=== PATIENT | female | born 1980 | race Two or more races ===

== ENCOUNTER 2018-06-26 21:17 | Inpatient (IN) | payer OTHER ==
[~2018-06-26] VITALS: Ht 167.6 cm; Wt 99.8 kg
[2018-06-26] MEDS ORDERED: LACTATED RINGERS 1,000 ML IV SCH (22:17)
[2018-06-26] MEDS ORDERED: DEXT 5%/LR + PITOCIN 20UNITS/L 1,000 ML IV SCH (22:17)
[2018-06-26] MEDS ORDERED: AMPICILLIN 2,000 MG in SODIUM CHLORIDE 0.9% 100 ML IV NR (22:30)
[2018-06-26] MEDS ORDERED: AZITHROMYCIN 500 MG in DEXT 5% WATER 250 ML IV NR (22:30)
[2018-06-26] MEDS ORDERED: BUTORPHANOL TARTRATE 2 MG/ML VIAL IV PRN (22:30)
[2018-06-26] MEDS ORDERED: LIDOCAINE HCL 1% 20ML VIAL (Pyxis) INJ INFIL NR (22:30)
[2018-06-26] MEDS ORDERED: BETAMETHASONE ACET/BETAMET 30 MG/5 ML VIAL IM SCH (22:30)
[2018-06-26 23:08] LABS: CLARITY URINE CLEAR (CLEAR); COLOR URINE YELLOW (YELLOW); KETONES URINE NEGATIVE (NEGATIVE); LEUKOCYTE ESTERASE URINE NEGATIVE (NEGATIVE); NITRITE URINE NEGATIVE (NEGATIVE); OCCULT BLOOD URINE 1+ (NEGATIVE); PROTEIN URINE NEGATIVE (NEGATIVE); SPECIFIC GRAVITY URINE 1.015 (1.005-1.030); UROBILINOGEN URINE 0.2 E.U./dL (0.2-1.0)
[2018-06-26 23:14] LABS: BASOPHILS % 0.3 % (0.0-2.0); EOSINOPHILS % 0.7 % (0.0-5.0); HEMATOCRIT. 32.9 % (36.0-48.0); HEMOGLOBIN. 11.1 g/dL (12.0-16.0); LYMPHOCYTES % 29.2 % (20.0-50.0); MEAN CORPUSCULAR HEMOGLOBIN 30.7 pg (28.0-32.0); MEAN CORPUSCULAR VOLUME 91.3 fL (81.0-99.0); MEAN PLATELET VOLUME 7.6 fl (7.4-10.4); MONOCYTES % 7.1 % (2.0-8.0); NEUTROPHILS % 62.7 % (40.0-76.0); PLATELET 205 x1000/uL (130-400); RED CELL DISTRIBUTION WIDTH 13.1 % (11.6-14.6)
[2018-06-26 23:17] LABS: *BARBITURATES SCREEN URINE NEGATIVE (NEGATIVE); *BENZODIAZEPINES SCREEN URINE NEGATIVE (NEGATIVE); *COCAINE SCREEN URINE NEGATIVE (NEGATIVE)
[2018-06-26 23:18] LABS: *AMPHETAMINES SCREEN URINE NEGATIVE (NEGATIVE); CANNABINOID URINE SCREEN NEGATIVE (NEGATIVE); METHADONE URINE SCREEN NEGATIVE (NEGATIVE); OPIATES URINE SCREEN NEGATIVE (NEGATIVE); PHENCYCLIDINE URINE SCREEN NEGATIVE (NEGATIVE)
[2018-06-26 23:24] LABS: INR 1.2; PARTIAL THROMBOPLASTIN TIME 29.9 sec (23.4-31.0); PROTHROMBIN TIME 11.8 sec (9.1-11.1)
[2018-06-26 23:53] LABS: HEPATITIS B SURFACE ANTIGEN NEGATIVE
[2018-06-27] MEDS: AMPICILLIN 1,000 MG in SODIUM CHLORIDE 0.9% 50 ML IV SCH ×4 (08:30→17:00)
[2018-06-27] MEDS: MAGNESIUM 20 G PREMIX (L & D) 500 ML IV SCH ×2 (09:30→17:42)
[2018-06-27 16:20] LABS: CHLORIDE 103 mEq/L (98-107)
[2018-06-27] MEDS: METFORMIN HCL 500MG TABLET PO SCH (17:08)
[2018-06-28] MEDS: MAGNESIUM 20 G PREMIX (L & D) 500 ML IV SCH (05:17)
[2018-06-28] MEDS: BLOOD SUGAR DIAGNOSTIC STRIP TEST SCH ×2 (06:30→22:10)
[2018-06-28] MEDS: AMPICILLIN 1,000 MG in SODIUM CHLORIDE 0.9% 50 ML IV SCH ×3 (08:00→19:59)
[2018-06-28] MEDS ORDERED: INSULIN REGULAR (HUMULIN R) 300UNITS/3ML SUBCUT SCH ×2 (09:15→13:15)
[2018-06-28] MEDS: METFORMIN HCL 500MG TABLET PO SCH (10:00)
[2018-06-28] MEDS ORDERED: LABETALOL HCL 200MG TABLET PO SCH (11:55)
[2018-06-28] MEDS: NIFEDIPINE 10MG CAPSULE PO SCH (12:50)
[2018-06-28] MEDS ORDERED: DEXTROSE 50% WATER 50ML SYRINGE IV PRN (13:15)
[2018-06-28] MEDS: MAGNESIUM OXIDE 400MG TABLET PO SCH (13:31)
[2018-06-28] MEDS: INSULIN LISPRO 100 UNITS/ML SUBCUT SCH (18:26)
[2018-06-28] MEDS ORDERED: LACTATED RINGERS 1,000 ML IV SCH (22:45)
[2018-06-29] MEDS: MAGNESIUM OXIDE 400MG TABLET PO SCH ×3 (00:38→17:59)
[2018-06-29] MEDS: AZITHROMYCIN 500 MG TABLET PO SCH ×2 (02:10→21:27)
[2018-06-29] MEDS: AMPICILLIN 1,000 MG in SODIUM CHLORIDE 0.9% 50 ML IV SCH ×5 (02:50→23:57)
[2018-06-29] MEDS: NIFEDIPINE 10MG CAPSULE PO SCH ×2 (09:53→17:58)
[2018-06-29] MEDS: METFORMIN HCL 500MG TABLET PO SCH (09:53)
[2018-06-29] MEDS: INSULIN LISPRO 100 UNITS/ML SUBCUT SCH ×3 (10:55→22:09)
[2018-06-29] MEDS ORDERED: LABETALOL HCL 100MG TABLET PO SCH (11:30)
[2018-06-29] MEDS: BLOOD SUGAR DIAGNOSTIC STRIP TEST SCH (21:30)
[2018-06-30] MEDS: NIFEDIPINE 10MG CAPSULE PO SCH ×3 (04:12→18:35)
[2018-06-30] MEDS: AMPICILLIN 1,000 MG in SODIUM CHLORIDE 0.9% 50 ML IV SCH ×2 (06:06→12:10)
[2018-06-30] MEDS: METFORMIN HCL 500MG TABLET PO SCH (09:09)
[2018-06-30] MEDS: MAGNESIUM OXIDE 400MG TABLET PO SCH ×2 (09:09→18:35)
[2018-06-30] MEDS: AMOXICILLIN 250MG CAPSULE PO SCH (22:21)
[2018-06-30] MEDS: AZITHROMYCIN 500 MG TABLET PO SCH (22:21)
[2018-06-30] MEDS ORDERED: ACETAMINOPHEN 500MG TABLET PO NR (22:45)
[2018-07-01] MEDS: NIFEDIPINE 10MG CAPSULE PO SCH ×3 (02:11→17:21)
[2018-07-01] MEDS: METFORMIN HCL 500MG TABLET PO SCH (09:07)
[2018-07-01] MEDS: MAGNESIUM OXIDE 400MG TABLET PO SCH ×2 (09:07→17:22)
[2018-07-01] MEDS: AMOXICILLIN 250MG CAPSULE PO SCH ×2 (09:07→17:22)
[2018-07-01] MEDS: ACETAMINOPHEN 500MG TABLET PO PRN (22:03)
[2018-07-01] MEDS: AZITHROMYCIN 500 MG TABLET PO SCH (22:34)
[2018-07-02] MEDS: AMOXICILLIN 250MG CAPSULE PO SCH ×3 (02:14→18:15)
[2018-07-02] MEDS: NIFEDIPINE 10MG CAPSULE PO SCH ×3 (02:16→18:14)
[2018-07-02] MEDS: MAGNESIUM OXIDE 400MG TABLET PO SCH ×2 (09:54→18:14)
[2018-07-02] MEDS: METFORMIN HCL 500MG TABLET PO SCH (09:54)
[2018-07-02] MEDS: BLOOD SUGAR DIAGNOSTIC STRIP TEST SCH (10:50)
[2018-07-02] MEDS: ACETAMINOPHEN 500MG TABLET PO PRN (21:29)
[2018-07-02] MEDS: AZITHROMYCIN 500 MG TABLET PO SCH (21:31)
[2018-07-03] MEDS: NIFEDIPINE 10MG CAPSULE PO SCH ×3 (02:13→17:38)
[2018-07-03] MEDS: AMOXICILLIN 250MG CAPSULE PO SCH ×3 (02:14→17:33)
[2018-07-03] MEDS: MAGNESIUM OXIDE 400MG TABLET PO SCH ×2 (09:21→17:33)
[2018-07-03] MEDS: METFORMIN HCL 500MG TABLET PO SCH (09:21)
[2018-07-03] MEDS: INSULIN LISPRO 100 UNITS/ML SUBCUT SCH (10:30)
[2018-07-03 11:03] LABS: BASOPHILS % 0.4 % (0.0-2.0); EOSINOPHILS % 0.9 % (0.0-5.0); HEMATOCRIT. 32.3 % (36.0-48.0); LYMPHOCYTES % 18.7 % (20.0-50.0); MEAN CORPUSCULAR VOLUME 91.5 fL (81.0-99.0); MEAN PLATELET VOLUME 7.7 fl (7.4-10.4); MONOCYTES % 7.8 % (2.0-8.0); NEUTROPHILS % 72.2 % (40.0-76.0); PLATELET 188 x1000/uL (130-400); RED BLOOD CELL COUNT 3.53 mill/uL (4.2-5.4); RED CELL DISTRIBUTION WIDTH 13.7 % (11.6-14.6)
[2018-07-03] MEDS: ACETAMINOPHEN 500MG TABLET PO PRN (20:27)
[2018-07-03] MEDS: AZITHROMYCIN 500 MG TABLET PO SCH (21:55)
[2018-07-04] MEDS: NIFEDIPINE 10MG CAPSULE PO SCH ×3 (07:16→22:27)
[2018-07-04] MEDS: METFORMIN HCL 500MG TABLET PO SCH (08:42)
[2018-07-04] MEDS: MAGNESIUM OXIDE 400MG TABLET PO SCH ×2 (08:42→16:56)
[2018-07-04] MEDS: ACETAMINOPHEN 500MG TABLET PO PRN (22:23)
[2018-07-05] MEDS: NIFEDIPINE 10MG CAPSULE PO SCH ×3 (06:33→20:00)
[2018-07-05] MEDS: MAGNESIUM OXIDE 400MG TABLET PO SCH ×2 (09:22→20:55)
[2018-07-05] MEDS: METFORMIN HCL 500MG TABLET PO SCH (09:22)
[2018-07-05] MEDS: PRENATAL VIT/FE FUMARATE/FA TABLET PO SCH (10:28)
[2018-07-05] MEDS: ACETAMINOPHEN 500MG TABLET PO PRN (20:51)
[2018-07-06] MEDS: NIFEDIPINE 10MG CAPSULE PO SCH ×3 (04:12→20:59)
[2018-07-06] MEDS: METFORMIN HCL 500MG TABLET PO SCH (09:11)
[2018-07-06] MEDS: PRENATAL VIT/FE FUMARATE/FA TABLET PO SCH (09:11)
[2018-07-06] MEDS: MAGNESIUM OXIDE 400MG TABLET PO SCH ×2 (09:11→20:59)
[2018-07-06 14:31] LABS: BASOPHILS % 0.3 % (0.0-2.0); HEMOGLOBIN. 11.8 g/dL (12.0-16.0); LYMPHOCYTES % 23.1 % (20.0-50.0); MEAN CORPUSCULAR HEMOGLOBIN 31.2 pg (28.0-32.0); MEAN CORPUSCULAR VOLUME 92.3 fL (81.0-99.0); MEAN PLATELET VOLUME 8.1 fl (7.4-10.4); MONOCYTES % 9.4 % (2.0-8.0); NEUTROPHILS % 66.2 % (40.0-76.0); PLATELET 225 x1000/uL (130-400); RED CELL DISTRIBUTION WIDTH 13.2 % (11.6-14.6)
[2018-07-07] MEDS: NIFEDIPINE 10MG CAPSULE PO SCH ×3 (05:23→20:03)
[2018-07-07] MEDS: MAGNESIUM OXIDE 400MG TABLET PO SCH ×2 (09:00→17:25)
[2018-07-07] MEDS: PRENATAL VIT/FE FUMARATE/FA TABLET PO SCH (09:00)
[2018-07-07] MEDS: METFORMIN HCL 500MG TABLET PO SCH (09:01)
[2018-07-07] MEDS: INSULIN LISPRO 100 UNITS/ML SUBCUT SCH (11:01)
[2018-07-07] MEDS: BLOOD SUGAR DIAGNOSTIC STRIP TEST SCH (20:37)
[2018-07-08] MEDS: NIFEDIPINE 10MG CAPSULE PO SCH ×3 (04:05→20:31)
[2018-07-08] MEDS: METFORMIN HCL 500MG TABLET PO SCH (09:44)
[2018-07-08] MEDS: MAGNESIUM OXIDE 400MG TABLET PO SCH ×2 (09:44→17:16)
[2018-07-08] MEDS: PRENATAL VIT/FE FUMARATE/FA TABLET PO SCH (09:45)
[2018-07-08] MEDS: ACETAMINOPHEN 500MG TABLET PO PRN (14:27)
[2018-07-08] MEDS: BLOOD SUGAR DIAGNOSTIC STRIP TEST SCH (20:35)
[2018-07-09] MEDS: NIFEDIPINE 10MG CAPSULE PO SCH ×3 (04:31→22:07)
[2018-07-09] MEDS: MAGNESIUM OXIDE 400MG TABLET PO SCH (09:29)
[2018-07-09] MEDS: PRENATAL VIT/FE FUMARATE/FA TABLET PO SCH (09:29)
[2018-07-09] MEDS: METFORMIN HCL 500MG TABLET PO SCH (09:30)
[2018-07-09] MEDS: INSULIN LISPRO 100 UNITS/ML SUBCUT SCH (16:32)
[2018-07-09] MEDS: ACETAMINOPHEN 500MG TABLET PO PRN (22:04)
[2018-07-10] MEDS ORDERED: MAGNESIUM OXIDE 400MG TABLET PO SCH (09:00)
[2018-07-10] MEDS: PRENATAL VIT/FE FUMARATE/FA TABLET PO SCH (09:09)
[2018-07-10] MEDS: METFORMIN HCL 500MG TABLET PO SCH (09:09)
[2018-07-10] MEDS: MAGNESIUM OXIDE 400MG TABLET PO SCH ×2 (09:10→19:01)
[2018-07-10] MEDS: NIFEDIPINE 10MG CAPSULE PO SCH ×2 (14:35→22:25)
[2018-07-10] MEDS ORDERED: LACTATED RINGERS 1,000 ML IV SCH (17:51)
[2018-07-10 20:01] LABS: BASOPHILS % 0.6 % (0.0-2.0); EOSINOPHILS % 1.9 % (0.0-5.0); HEMATOCRIT. 34.8 % (36.0-48.0); HEMOGLOBIN. 11.5 g/dL (12.0-16.0); LYMPHOCYTES % 24.9 % (20.0-50.0); MEAN CORPUSCULAR HEMOGLOBIN 30.5 pg (28.0-32.0); MEAN CORPUSCULAR VOLUME 92.2 fL (81.0-99.0); MONOCYTES % 9.4 % (2.0-8.0); NEUTROPHILS % 63.2 % (40.0-76.0); PLATELET 288 x1000/uL (130-400); RED BLOOD CELL COUNT 3.78 mill/uL (4.2-5.4); RED CELL DISTRIBUTION WIDTH 13.1 % (11.6-14.6)
[2018-07-10] MEDS: ACETAMINOPHEN 500MG TABLET PO PRN (22:32)
[2018-07-11] MEDS: NIFEDIPINE 10MG CAPSULE PO SCH ×3 (06:22→22:00)
[2018-07-11] MEDS: PRENATAL VIT/FE FUMARATE/FA TABLET PO SCH (09:47)
[2018-07-11] MEDS: METFORMIN HCL 500MG TABLET PO SCH (09:47)
[2018-07-11] MEDS: MAGNESIUM OXIDE 400MG TABLET PO SCH (10:08)
[2018-07-12] MEDS: NIFEDIPINE 10MG CAPSULE PO SCH (06:12)
[2018-07-12] MEDS: METFORMIN HCL 500MG TABLET PO SCH (08:25)
[2018-07-12] MEDS: MAGNESIUM OXIDE 400MG TABLET PO SCH (08:25)
[2018-07-12] MEDS: PRENATAL VIT/FE FUMARATE/FA TABLET PO SCH (08:25)
[2018-07-12] MEDS: ACETAMINOPHEN 500MG TABLET PO PRN (09:58)
[2018-07-13] MEDS: NIFEDIPINE 10MG CAPSULE PO SCH ×3 (09:00→21:48)
[2018-07-13] MEDS: PRENATAL VIT/FE FUMARATE/FA TABLET PO SCH (09:20)
[2018-07-13] MEDS: METFORMIN HCL 500MG TABLET PO SCH (09:20)
[2018-07-13] MEDS: MAGNESIUM OXIDE 400MG TABLET PO SCH (09:22)
[2018-07-14] MEDS: PRENATAL VIT/FE FUMARATE/FA TABLET PO SCH (09:00)
[2018-07-14] MEDS: METFORMIN HCL 500MG TABLET PO SCH (09:29)
[2018-07-14] MEDS: MAGNESIUM OXIDE 400MG TABLET PO SCH (09:30)
[2018-07-14] MEDS: INSULIN LISPRO 100 UNITS/ML SUBCUT SCH ×2 (11:29→16:48)
[2018-07-14] MEDS: NIFEDIPINE 10MG CAPSULE PO SCH (21:23)
[2018-07-14] MEDS: ACETAMINOPHEN 500MG TABLET PO PRN (21:29)
[2018-07-15] MEDS: NIFEDIPINE 10MG CAPSULE PO SCH ×2 (08:58→21:00)
[2018-07-15] MEDS: PRENATAL VIT/FE FUMARATE/FA TABLET PO SCH (08:59)
[2018-07-15] MEDS: MAGNESIUM OXIDE 400MG TABLET PO SCH (09:00)
[2018-07-15] MEDS: METFORMIN HCL 500MG TABLET PO SCH (09:00)
[2018-07-15] MEDS: ACETAMINOPHEN 500MG TABLET PO PRN (20:58)
[2018-07-15] MEDS: BLOOD SUGAR DIAGNOSTIC STRIP TEST SCH (21:55)
[2018-07-16 07:46] LABS: BASOPHILS % 0.3 % (0.0-2.0); EOSINOPHILS % 2.6 % (0.0-5.0); HEMATOCRIT. 33.1 % (36.0-48.0); LYMPHOCYTES % 22.7 % (20.0-50.0); MEAN CORPUSCULAR HEMOGLOBIN 30.3 pg (28.0-32.0); MEAN PLATELET VOLUME 8.5 fl (7.4-10.4); MONOCYTES % 7.1 % (2.0-8.0); NEUTROPHILS % 67.3 % (40.0-76.0); PLATELET 258 x1000/uL (130-400); RED BLOOD CELL COUNT 3.64 mill/uL (4.2-5.4); RED CELL DISTRIBUTION WIDTH 13.3 % (11.6-14.6)
[2018-07-16] MEDS: PRENATAL VIT/FE FUMARATE/FA TABLET PO SCH (08:42)
[2018-07-16] MEDS: NIFEDIPINE 10MG CAPSULE PO SCH ×2 (08:42→21:03)
[2018-07-16] MEDS: MAGNESIUM OXIDE 400MG TABLET PO SCH (08:43)
[2018-07-16] MEDS: METFORMIN HCL 500MG TABLET PO SCH (08:43)
[2018-07-16] MEDS: INSULIN LISPRO 100 UNITS/ML SUBCUT SCH (11:24)
[2018-07-16] MEDS: ACETAMINOPHEN 500MG TABLET PO PRN (21:04)
[2018-07-17] MEDS ORDERED: MISOPROSTOL 100MCG TABLET PO SCH (03:00)
[2018-07-17] MEDS: METFORMIN HCL 500MG TABLET PO SCH (08:49)
[2018-07-17] MEDS: PRENATAL VIT/FE FUMARATE/FA TABLET PO SCH (08:49)
[2018-07-17] MEDS: NIFEDIPINE 10MG CAPSULE PO SCH (08:50)
[2018-07-17] MEDS: MAGNESIUM OXIDE 400MG TABLET PO SCH (09:00)
[2018-07-17] MEDS ORDERED: OXYTOCIN 20 UNITS in LACTATED RINGERS 1,000 ML IV SCH ×2 (09:00→17:30)
[2018-07-17] MEDS ORDERED: LACTATED RINGERS 1,000 ML IV SCH (09:00)
[2018-07-17] MEDS: MISOPROSTOL 100MCG TABLET PO SCH ×2 (12:55→17:05)
[2018-07-17] MEDS ORDERED: TERBUTALINE SULFATE 1MG/ML VIAL SUBCUT NR (18:30)
[2018-07-17] MEDS ORDERED: TERBUTALINE SULFATE 1MG/ML VIAL ONE (18:35)
[2018-07-17] MEDS ORDERED: CITRIC ACID/SODIUM CITRATE SOLN 30ML UDC PO NR (18:45)
[2018-07-17] MEDS ORDERED: FENTANYL CITRATE/PF 50MCG/ML 2ML VIAL ONE (19:39)
[2018-07-17] MEDS ORDERED: MIDAZOLAM HCL 2 MG/2 ML VIAL ONE (19:40)
[2018-07-17] MEDS ORDERED: ONDANSETRON HCL 4MG/2ML INJ ONE (20:03)
[2018-07-17] MEDS ORDERED: CEFAZOLIN SODIUM 1000MG/VIAL ONE (20:03)
[2018-07-17] MEDS ORDERED: SUCCINYLCHOLINE CHLORIDE 200MG/10ML IV ONE (20:05)
[2018-07-17] MEDS ORDERED: ROCURONIUM BROMIDE 10MG/ML VIAL 5ML IV ONE (20:05)
[2018-07-17] MEDS ORDERED: KETOROLAC 60MG/2ML VIAL IM ONE (20:05)
[2018-07-17] MEDS ORDERED: OXYTOCIN 10 UNITS/ML 1ML ONE ×2 (20:05→20:09)
[2018-07-17] MEDS ORDERED: PROPOFOL 200MG/20ML VIAL IV ONE (20:05)
[2018-07-17] MEDS ORDERED: DEXT 5%/LR + PITOCIN 20UNITS/L 1,000 ML IV SCH (20:21)
[2018-07-17] MEDS ORDERED: NEOSTIGMINE METHYLSULFATE 1MG/ML 10 ML VIAL ONE (20:29)
[2018-07-17] MEDS ORDERED: GLYCOPYRROLATE 0.2 MG/ML 2ML VIAL ONE (20:29)
[2018-07-17] MEDS ORDERED: HYDROCODONE/ACETAMINOPHEN 5/325MG TABLET PO PRN (20:30)
[2018-07-17] MEDS ORDERED: INFLUENZA VIRUS VACCINE(AFLURIA) 0.5ML SYR IM ONE (20:30)
[2018-07-17] MEDS ORDERED: TETANUS, DIPHTHERIA, PERTUSSIS VAC/PF 0.5ML (>7YR OLD) IM ONE (20:30)
[2018-07-17] MEDS ORDERED: BISACODYL 10MG SUPP PR PRN (20:30)
[2018-07-17] MEDS ORDERED: LANOLIN OINT 0.25 GM TUBE TOP PRN (20:30)
[2018-07-17] MEDS ORDERED: DIPHENHYDRAMINE 25MG CAPSULE PO PRN (20:30)
[2018-07-17] MEDS ORDERED: ONDANSETRON HCL 4MG/2ML INJ IV PRN (20:30)
[2018-07-17] MEDS ORDERED: IBUPROFEN 400MG TABLET PO PRN (20:30)
[2018-07-17] MEDS ORDERED: MEPERIDINE HCL/PF 25MG/ML CPJ IV PRN (20:45)
[2018-07-17] MEDS ORDERED: DOCUSATE SODIUM 100MG CAPSULE PO SCH (21:00)
[2018-07-17] MEDS: HYDROMORPHONE HCL/PF 2MG/ML CPJ IV PRN ×2 (21:07→22:00)
[2018-07-18] MEDS: HYDROMORPHONE HCL/PF 2MG/ML CPJ IV PRN (01:07)
[2018-07-18] MEDS: HYDROMORPHONE HCL/PF 2MG/ML CPJ IM PRN ×2 (06:36→21:21)
[2018-07-18 08:00] VITALS: BP 130/82
[2018-07-18 08:30] VITALS: BP 127/81
[2018-07-18] MEDS ORDERED: PRENATAL VIT/FE FUMARATE/FA TABLET PO SCH (09:00)
[2018-07-18] MEDS ORDERED: DEXT 5%/LR + PITOCIN 20UNITS/L 1,000 ML IV SCH (09:34)
[2018-07-18] MEDS ORDERED: KETOROLAC 30MG/ML VIAL ONE (11:00)
[2018-07-18] MEDS ORDERED: KETOROLAC 60MG/2ML VIAL IM NR (11:00)
[2018-07-18] MEDS: SIMETHICONE 80MG TABLET CHEW PO SCH ×3 (16:23→21:22)
[2018-07-18] MEDS: FERROUS SULFATE 325MG TABLET PO SCH (16:23)
[2018-07-18] MEDS: PRENATAL VIT/FE FUMARATE/FA TABLET PO SCH (16:23)
[2018-07-18 22:00] VITALS: BP 133/80
[2018-07-19 03:35] VITALS: BP 126/68
[2018-07-19 08:00] VITALS: BP 130/88
[2018-07-19] MEDS: NIFEDIPINE 10MG CAPSULE PO SCH (09:01)
[2018-07-19] MEDS: PRENATAL VIT/FE FUMARATE/FA TABLET PO SCH (09:01)
[2018-07-19] MEDS: IBUPROFEN 800MG TABLET PO PRN ×2 (09:01→16:42)
[2018-07-19] MEDS: FERROUS SULFATE 325MG TABLET PO SCH ×2 (09:01→16:42)
[2018-07-19 12:00] VITALS: BP 128/77
[2018-07-19 16:00] VITALS: BP 131/81
[2018-07-19] MEDS: SIMETHICONE 80MG TABLET CHEW PO SCH (16:43)
[2018-07-19] MEDS ORDERED: BACITRACIN 15GM TUBE TOP NR (17:00)
== END 2018-07-19 18:00 | disposition home or self-care (01) | DRG 786 ==
LOC: OBSVTOIN 21:17 → 8 EST LDRP 21:17 → INTOOBSV 21:17 → 8 EST A/PP 06-28 07:46 → 8 EST LDRP 07-17 16:21 → 8EST 07-18 08:00
PROVIDERS: ADMIT Obstetrics & Gynecology; ATTEND Obstetrics & Gynecology
PROC: 10D00Z1 Extraction of Products of Conception, Low, Open Approach (ICD-10-PCS; principal; 2018-07-17)
DX: O40.3XX0 Polyhydramnios, third trimester, not applicable or unspecified (principal); O60.03 Preterm labor without delivery, third trimester; O10.92 Unspecified pre-existing hypertension complicating childbirth; Z37.0 Single live birth; O24.429 Gestational diabetes mellitus in childbirth, unspecified control; O42.913 Preterm premature rupture of membranes, unspecified as to length of time between rupture and onset of labor, third trimester; O76 Abnormality in fetal heart rate and rhythm complicating labor and delivery; O69.81X0 Labor and delivery complicated by cord around neck, without compression, not applicable or unspecified; O34.13 Maternal care for benign tumor of corpus uteri, third trimester; D25.9 Leiomyoma of uterus, unspecified; O99.214 Obesity complicating childbirth; E66.9 Obesity, unspecified; Z3A.34 34 weeks gestation of pregnancy; Z83.3 Family history of diabetes mellitus; Z91.19 Patient's noncompliance with other medical treatment and regimen; O24.420 Gestational diabetes mellitus in childbirth, diet controlled
CPT/HCPCS: 36415; 76805; 76815; 76818; 80305; 82947; 82962; 83735; 86592; 86703; 86762; 86850; 86900; 87340; 88307; 99281; G0378; J0290; J0330; J0456; J0595; J0690; J0702; J1170; J1815; J1885; J2250; J2405; J2590; J2704; J2710; J3010; J3105; J3475; J3490; J7050; J7060; J7120; A4315

== ENCOUNTER 2020-07-29 00:24 | Inpatient (IN) | payer OTHER ==
[~2020-07-29] VITALS: Ht 167.6 cm; Wt 97.5 kg
[2020-07-29 01:14] LABS: BASOPHILS % 0.3 % (0.0-2.0); EOSINOPHILS % 1.5 % (0.0-5.0); HEMATOCRIT. 37.3 % (36.0-48.0); HEMOGLOBIN. 12.3 g/dL (12.0-16.0); LYMPHOCYTES % 25.1 % (20.0-50.0); MEAN CORPUSCULAR HEMOGLOBIN 31.6 pg (28.0-32.0); MEAN CORPUSCULAR VOLUME 96.2 fL (81.0-99.0); MEAN PLATELET VOLUME 7.6 fl (7.4-10.4); NEUTROPHILS % 64.1 % (40.0-76.0); PLATELET 224 x1000/uL (130-400); RED BLOOD CELL COUNT 3.88 mill/uL (4.2-5.4)
[2020-07-29 01:20] LABS: CHLORIDE 98 mEq/L (98-107)
[2020-07-29 01:25] LABS: ETHANOL BLOOD < 10 mg/dL
[2020-07-29] MEDS ORDERED: POTASSIUM CHLORIDE 20MEQ TABLET SR PO ONE (01:45)
[2020-07-29 02:09] LABS: *BARBITURATES SCREEN URINE NEGATIVE (NEGATIVE); *BENZODIAZEPINES SCREEN URINE NEGATIVE (NEGATIVE); *COCAINE SCREEN URINE NEGATIVE (NEGATIVE); METHADONE URINE SCREEN NEGATIVE (NEGATIVE); OPIATES URINE SCREEN NEGATIVE (NEGATIVE); PHENCYCLIDINE URINE SCREEN NEGATIVE (NEGATIVE)
[2020-07-29 02:10] LABS: *AMPHETAMINES SCREEN URINE NEGATIVE (NEGATIVE); CANNABINOID URINE SCREEN NEGATIVE (NEGATIVE)
[2020-07-29] MEDS ORDERED: LEVETIRACETAM 500MG PREMIX 100 ML IV ONE (03:30)
[2020-07-29] MEDS ORDERED: ACETAMINOPHEN 325MG TABLET PO PRN ×2 (07:30→08:30)
[2020-07-29] MEDS ORDERED: CLONIDINE 0.1MG TABLET PO PRN (08:30)
[2020-07-29] MEDS ORDERED: ONDANSETRON HCL 4MG/2ML INJ IV PRN (08:30)
[2020-07-29] MEDS ORDERED: DOCUSATE SODIUM 100MG CAPSULE PO PRN (08:30)
[2020-07-29] MEDS ORDERED: LORAZEPAM 2MG/ML CPJ IV PRN (08:30)
[2020-07-29 09:00] VITALS: BP 107/62
[2020-07-29] MEDS ORDERED: POTASSIUM CHLORIDE INJ 40 MEQ in DEXT 5% WATER 250 ML IV SCH (09:00)
[2020-07-29] MEDS ORDERED: POTASSIUM CHLORIDE 20MEQ TABLET SR PO SCH (09:00)
[2020-07-29] MEDS: ENOXAPARIN 40MG/0.4ML SYR SUBCUT SCH (09:41)
[2020-07-29 09:53] LABS: CHLORIDE 102 mEq/L (98-107)
[2020-07-29 10:30] VITALS: BP 107/62
[2020-07-29] MEDS: KETOROLAC 30MG/ML VIAL IV PRN ×2 (10:43→17:55)
[2020-07-29] MEDS ORDERED: MAGNESIUM 4 G PREMIX 100 ML IV SCH (12:00)
[2020-07-29] MEDS ORDERED: LEVETIRACETAM 500MG PREMIX 100 ML IV SCH (12:00)
[2020-07-29 12:14] VITALS: BP 114/69
[2020-07-29] MEDS ORDERED: HYDROCODONE/ACETAMINOPHEN 5/325MG TABLET PO NR (12:45)
[2020-07-29] MEDS: LEVETIRACETAM 500MG PREMIX 100 ML IV SCH ×2 (13:49→21:53)
[2020-07-29] MEDS: CHLORDIAZEPOXIDE 25MG CAPSULE PO SCH ×2 (13:49→21:53)
[2020-07-29] MEDS: SODIUM CHLORIDE 0.9% INJ 3ML FLUSH IVF SCH ×2 (13:56→21:53)
[2020-07-29] MEDS ORDERED: MULTIVITAMINS,THER W-MINERALS TABLET PO NR (14:00)
[2020-07-29] MEDS ORDERED: FOLIC ACID 1 MG, THIAMINE HCL 100 MG in DEXTROSE 5% WATER 1,000 ML IV ONE (15:00)
[2020-07-29 16:00] VITALS: BP 125/73
[2020-07-29] MEDS: CITALOPRAM HYDROBROMIDE 10MG TABLET PO SCH (17:51)
[2020-07-29] MEDS ORDERED: GABA100C MT (18:56)
[2020-07-29] MEDS ORDERED: METO-539 MT (18:56)
[2020-07-29] MEDS ORDERED: AMLO10TA80 PO (18:56)
[2020-07-29] MEDS ORDERED: METF-414 PO (18:56)
[2020-07-29 20:00] VITALS: BP 141/84
[2020-07-29] MEDS: HYDROCODONE/ACETAMINOPHEN 5/325MG TABLET PO PRN (20:04)
[2020-07-29] MEDS: METOPROLOL TARTRATE 50MG TABLET PO SCH (22:14)
[2020-07-30] VITALS: BP 128/82
[2020-07-30] MEDS: KETOROLAC 30MG/ML VIAL IV PRN (00:37)
[2020-07-30 04:00] VITALS: BP 110/66
[2020-07-30] MEDS: CHLORDIAZEPOXIDE 25MG CAPSULE PO SCH ×2 (05:38→13:11)
[2020-07-30] MEDS: SODIUM CHLORIDE 0.9% INJ 3ML FLUSH IVF SCH ×2 (05:40→13:12)
[2020-07-30] MEDS: HYDROCODONE/ACETAMINOPHEN 5/325MG TABLET PO PRN ×2 (06:15→13:10)
[2020-07-30 08:00] VITALS: BP 120/82
[2020-07-30 08:25] LABS: CHLORIDE 101 mEq/L (98-107)
[2020-07-30] MEDS: CITALOPRAM HYDROBROMIDE 10MG TABLET PO SCH (09:41)
[2020-07-30] MEDS: METOPROLOL TARTRATE 50MG TABLET PO SCH (09:42)
[2020-07-30] MEDS: LEVETIRACETAM 500MG PREMIX 100 ML IV SCH (09:42)
[2020-07-30] MEDS: ENOXAPARIN 40MG/0.4ML SYR SUBCUT SCH (09:42)
[2020-07-30 10:07] LABS: BASOPHILS % 0.3 % (0.0-2.0); EOSINOPHILS % 2.1 % (0.0-5.0); HEMATOCRIT. 34.9 % (36.0-48.0); HEMOGLOBIN. 11.4 g/dL (12.0-16.0); LYMPHOCYTES % 29.3 % (20.0-50.0); MEAN CORPUSCULAR HEMOGLOBIN 32.1 pg (28.0-32.0); MEAN CORPUSCULAR VOLUME 98.1 fL (81.0-99.0); MEAN PLATELET VOLUME 7.5 fl (7.4-10.4); NEUTROPHILS % 57.3 % (40.0-76.0); PLATELET 239 x1000/uL (130-400); RED BLOOD CELL COUNT 3.55 mill/uL (4.2-5.4); RED CELL DISTRIBUTION WIDTH 17.4 % (11.6-14.6)
[2020-07-30 12:10] VITALS: BP 115/82
[2020-07-30] MEDS ORDERED: POTASSIUM CHLORIDE 20MEQ TABLET SR PO SCH (12:45)
[2020-07-30] MEDS ORDERED: MAGNESIUM OXIDE 400MG TABLET PO SCH (12:45)
[2020-07-30] MEDS ORDERED: KEPP500 MT (14:14)
[2020-07-30 14:49] VITALS: BP 115/82
[2020-07-31] MEDS ORDERED: ENOXAPARIN 30MG/0.3ML SYR SUBCUT SCH (09:00)
== END 2020-07-30 16:00 | disposition home or self-care (01) | DRG 53 ==
LOC: ER 00:24 → 8WST 03:41 → EDBEDREQ 03:48 → EDBEDREQSVC 04:18 → ENRESERV 08:16
PROVIDERS: ADMIT Ophthalmology; ATTEND Ophthalmology
DX: G40.909 Epilepsy, unspecified, not intractable, without status epilepticus (principal); E83.42 Hypomagnesemia; D72.819 Decreased white blood cell count, unspecified; E87.6 Hypokalemia; F32.9 Major depressive disorder, single episode, unspecified; E66.01 Morbid (severe) obesity due to excess calories; I10 Essential (primary) hypertension; R32 Unspecified urinary incontinence; R74.01 Elevation of levels of liver transaminase levels; Z79.899 Other long term (current) drug therapy; Z68.34 Body mass index [BMI] 34.0-34.9, adult
CPT/HCPCS: 36415; 70551; 80048; 80053; 80305; 80320; 82962; 83036; 83735; 85025; 93005; 93970; 99285; J1650; J1885; J1953; J3411; J3475; J3480; J3490; J7040; J7060; J7070; G0480

== ENCOUNTER 2021-02-24 08:57 | Emergency (ER) | payer MEDICAID ==
[~2021-02-24] VITALS: Ht 167.6 cm; Wt 95.0 kg
[~2021-02-24 08:57] MED LIST: AMLO10TA80 PO; GABA100C MT; KEPP500 MT; METF-414 PO; METO-539 MT
[2021-02-24] MEDS ORDERED: FUROSEMIDE 40MG/4ML VIAL IVP ONE (09:30)
[2021-02-24 10:33] LABS: CHLORIDE 104 mEq/L (98-107)
[2021-02-24 10:34] LABS: BASOPHILS % 0.7 % (0.0-2.0); HEMATOCRIT. 31.8 % (36.0-48.0); HEMOGLOBIN. 10.4 g/dL (12.0-16.0); LYMPHOCYTES % 19.5 % (20.0-50.0); MEAN CORPUSCULAR HEMOGLOBIN 31.7 pg (28.0-32.0); MEAN CORPUSCULAR VOLUME 96.7 fL (81.0-99.0); MEAN PLATELET VOLUME 7.9 fl (7.4-10.4); MONOCYTES % 11.5 % (2.0-8.0); NEUTROPHILS % 66.3 % (40.0-76.0); PLATELET 246 x1000/uL (130-400); RED BLOOD CELL COUNT 3.29 mill/uL (4.2-5.4); RED CELL DISTRIBUTION WIDTH 16.2 % (11.6-14.6)
[2021-02-24] MEDS ORDERED: HYDROCODONE/ACETAMINOPHEN 5/325MG TABLET PO ONE (14:15)
[2021-02-24] MEDS ORDERED: FURO20TA4 MT (15:53)
[2021-02-24] MEDS ORDERED: POTA20TA82 MT (15:53)
[2021-02-24] MEDS ORDERED: MORPHINE SULFATE 4 MG/ML CPJ (NOT FOR IM USE) IV ONE (16:15)
[2021-02-24] MEDS ORDERED: MORPHINE SULFATE 2 MG/ML CPJ (NOT FOR IM USE) IV NR (16:30)
[2021-02-24 17:15] VITALS: BP 123/80
== END 2021-02-24 18:09 | disposition home or self-care (01) ==
LOC: ER 08:57
DX: R18.8 Other ascites (principal); E86.0 Dehydration; E11.9 Type 2 diabetes mellitus without complications; I10 Essential (primary) hypertension
CPT/HCPCS: 36415; 49083; 71045; 76705; 80053; 83880; 84484; 85025; 93005; 96374; 96375; 99285; J1940; J2270